=== PATIENT | male | born 2000 | race Caucasian/White ===

== ENCOUNTER 2019-03-30 19:04 | Emergency (ER) | payer OTHER ==
[~2019-03-30] VITALS: Ht 167.6 cm; Wt 73.6 kg
[2019-03-30 19:05] VITALS: BP 133/70
[2019-03-30] MEDS ORDERED: ACET-908 PO (19:16)
[2019-03-30] MEDS ORDERED: TRAZ1TAB10 PO (19:16)
[2019-03-30] MEDS ORDERED: NORCO, ANEXSIA 5/325MG TABLET (HYDROcodone/ACETAMINOPHEN) PO ONE (20:00)
[2019-03-30] MEDS ORDERED: NORC1TAB7 PO (20:13)
--- NOTE | 2019-03-31 08:31 | REP ---
Right ankle series: Four views. History: Sports injury. Findings: There is an accessory ossicle at the fibular tip. There is moderate soft tissue swelling about the lateral malleolus. Ankle mortise is intact. No acute fracture is visible. Lateral view shows some anterior soft tissue swelling as well. Impression: Accessory ossicle at the distal fibular tip. Anterolateral soft tissue swelling moderate in degree. No fracture is observed. Electronically Signed by Isidoro Acuña MD 03/31/2019 08:23 A
== END 2019-03-30 20:18 | disposition home or self-care (01) ==
LOC: M ED 19:04
DX: S82.831A Other fracture of upper and lower end of right fibula, initial encounter for closed fracture (principal); X50.1XXA Overexertion from prolonged static or awkward postures, initial encounter; Y92.830 Public park as the place of occurrence of the external cause; Y93.89 Activity, other specified; Y99.9 Unspecified external cause status; F17.200 Nicotine dependence, unspecified, uncomplicated; Z79.899 Other long term (current) drug therapy

== ENCOUNTER 2021-11-08 10:39 | Emergency (ER) | payer OTHER ==
[~2021-11-08] VITALS: Ht 165.1 cm; Wt 69.6 kg
[2021-11-08 10:39] VITALS: BP 132/74
[~2021-11-08 10:39] MED LIST: ACET-910 PO; NORC1TAB7 PO; TRAZ1TAB10 PO
== END 2021-11-08 10:55 | disposition left against medical advice (07) ==
LOC: M ED 10:39
DX: Z53.21 Procedure and treatment not carried out due to patient leaving prior to being seen by health care provider (principal)